=== PATIENT | female | born 1995 | race Caucasian/White ===

== ENCOUNTER 2016-06-19 12:10 | Inpatient (IN) | payer OTHER ==
[~2016-06-19] VITALS: Ht 160 cm; Wt 72.6 kg
[2016-06-19] VITALS (8 sets, daily range): BP systolic 120–137; RESP 18–20; TEMP 98.1; Ht 160 cm; Wt 72.6 kg
[2016-06-19] MEDS ORDERED: ONDANSETRON 4 MG VIAL IV PRN (12:55)
[2016-06-19] MEDS ORDERED: CEFAZOLIN (LD/OB) 100 ML IV PRN (12:55)
[2016-06-19] MEDS ORDERED: METOCLOPRAMIDE 10 MG/2 ML VIAL IV PUSH PRN (12:55)
[2016-06-19] MEDS ORDERED: ALU/MAG/SIM 30 ML UDC PO PRN (12:55)
[2016-06-19] MEDS ORDERED: LIDOCAINE 1% 30 ML PF INFILTRATE ONE (12:55)
[2016-06-19] MEDS ORDERED: FAMOTIDINE 20 MG INJ IV PRN (12:55)
[2016-06-19] MEDS ORDERED: LIDOCAINE 1% BUFFERED 1 ML SYR INTRADERM PRN (12:55)
[2016-06-19] MEDS ORDERED: PROMETHAZINE 25 MG/ML VIAL IV PRN (12:55)
[2016-06-19] MEDS ORDERED: LACT RINGERS 1,000 ML IV SCH (12:55)
[2016-06-19] MEDS ORDERED: FAMOTIDINE 20 MG TAB PO PRN (12:55)
[2016-06-19] MEDS ORDERED: OXYTOCIN 15 UNITS/250 ML NS 250 ML IV SCH (12:55)
[2016-06-19] MEDS ORDERED: TERBUTALINE 1 MG/ML VIAL SUBQ PRN (12:55)
[2016-06-19] MEDS: MORPHINE 5 MG/1 ML VIAL IV PRN ×3 (16:32→18:46)
[2016-06-19] MEDS: MISOPROSTOL 200 MCG TAB PO SCH ×2 (20:18→23:21)
[2016-06-19] MEDS ORDERED: MEASLES,MUMPS,RUBELLA VAC SUBQ.VACC ONE (21:25)
[2016-06-19] MEDS ORDERED: TDaP 0.5 ML VIAL IM.VACC ONE (21:25)
[2016-06-19] MEDS ORDERED: OXYTOCIN 15 UNITS/250 ML NS 250 ML IV ONE (21:25)
[2016-06-19] MEDS ORDERED: MAG HYDROX 30 ML UDC PO PRN (21:25)
[2016-06-19] MEDS ORDERED: DERMOPLAST SPRAY TOPICAL PRN (21:25)
[2016-06-19] MEDS ORDERED: ZOLPIDEM 5 MG TAB PO PRN (21:25)
[2016-06-19] MEDS: ASTRINGENT MED PADS 40'S TOPICAL PRN (23:20)
[2016-06-19] MEDS: Ibuprofen 600 MG TAB PO SCH (23:21)
[2016-06-20] MEDS: DOCUSATE SOD 100 MG CAP PO SCH (08:05)
[2016-06-20] MEDS: Ibuprofen 600 MG TAB PO SCH ×4 (08:05→23:47)
[2016-06-20 08:32] VITALS: BP_SYST 119; RESP 16; TEMP 98.3
[2016-06-20 09:24] VITALS: BP_SYST 110; TEMP 97.7
[2016-06-20 09:25] VITALS: RESP 18
[2016-06-20 13:32] VITALS: BP_SYST 124
[2016-06-20 13:33] VITALS: RESP 18; TEMP 97.9
[2016-06-20] MEDS: ASTRINGENT MED PADS 40'S TOPICAL PRN (19:47)
[2016-06-21] MEDS: Ibuprofen 600 MG TAB PO SCH ×2 (05:33→12:05)
[2016-06-21] MEDS: DOCUSATE SOD 100 MG CAP PO SCH (09:20)
[2016-06-21 10:43] VITALS: BP_SYST 124; RESP 18; TEMP 97.9
[2016-06-21 13:50] VITALS: BP_SYST 126; RESP 20; TEMP 98.3
== END 2016-06-21 14:10 | disposition home or self-care (01) | DRG 775 ==
LOC: LDOP 12:10 → LD 13:13 → OB 06-20 16:13
PROVIDERS: ADMIT Obstetrics & Gynecology Reproductive Endocrinology; ATTEND Obstetrics & Gynecology Reproductive Endocrinology
PROC: 10E0XZZ Delivery of Products of Conception, External Approach (ICD-10-PCS; principal; 2016-06-19)
PROC: 0HQ9XZZ Repair Perineum Skin, External Approach (ICD-10-PCS; 2016-06-19)
DX: O70.0 First degree perineal laceration during delivery (principal); Z37.0 Single live birth; Z3A.39 39 weeks gestation of pregnancy
CPT/HCPCS: 36415; 85025